=== PATIENT | male | born 1955 | race Two or more races ===

== ENCOUNTER 2017-12-23 16:07 | Inpatient (IN) | payer MEDICAID, OTHER ==
[~2017-12-23] VITALS: Ht 170.2 cm; Wt 89.4 kg
[2017-12-23] MEDS ORDERED: SODIUM CHLORIDE 0.9% 1,000 ML IV ONE (16:24)
[2017-12-23] MEDS ORDERED: PANTOPRAZOLE SODIUM 40 MG/VIAL IV ONE (16:30)
[2017-12-23] MEDS ORDERED: ACETAMINOPHEN 325MG TABLET PO STA (17:07)
[2017-12-23] MEDS ORDERED: VANCOMYCIN 1 G PREMIX 200 ML IV ONE (17:15)
[2017-12-23] MEDS ORDERED: SODIUM CHLORIDE 0.9% 1000ML BAG (SEPSIS BOLUS) IV ONE (17:15)
[2017-12-23] MEDS ORDERED: PIPERACILLIN/TAZ 3.375G PREMIX 50 ML IV ONE (17:15)
[2017-12-23 17:38] LABS: BASOPHILS % 0.7 % (0.0-2.0); HEMATOCRIT. 30.4 % (42.0-52.0); HEMOGLOBIN. 10.4 g/dL (14.0-18.0); LYMPHOCYTES % 8.3 % (20.0-50.0); MEAN CORPUSCULAR HEMOGLOBIN 31.6 pg (28.0-32.0); MEAN CORPUSCULAR VOLUME 92.2 fL (80.0-94.0); MEAN PLATELET VOLUME 8.6 fl (7.4-10.4); MONOCYTES % 5.5 % (2.0-8.0); NEUTROPHILS % 83.5 % (40.0-76.0); PLATELET 102 x1000/uL (130-400); RED BLOOD CELL COUNT 3.29 mill/uL (4.7-6.1); RED CELL DISTRIBUTION WIDTH 19.1 % (11.6-14.6)
[2017-12-23 17:44] LABS: INR 1.4; PROTHROMBIN TIME 14.4 sec (9.1-11.1)
[2017-12-23 17:47] LABS: CHLORIDE 102 mEq/L (98-107)
[2017-12-23 20:00] VITALS: BP 155/103
[2017-12-23] MEDS ORDERED: NITROGLYCERIN 0.4MG TABLET SL SL PRN (21:00)
[2017-12-23] MEDS ORDERED: GUAIFENESIN 200MG/10ML SUGAR FREE UDC PO PRN (21:15)
[2017-12-23] MEDS ORDERED: CLONIDINE 0.1MG TABLET PO PRN (21:15)
[2017-12-23] MEDS ORDERED: ACETAMINOPHEN 325MG TABLET PO PRN (21:15)
[2017-12-23] MEDS ORDERED: IPRATROPIUM/ALBUTEROL 0.5-3(2.5)MG/3ML NEB INH PRN (21:15)
[2017-12-23] MEDS ORDERED: MAGNESIUM/ALUMINUM HYDROXIDE/SIMETHICONE 30ML UDC PO PRN (21:15)
[2017-12-23] MEDS ORDERED: ONDANSETRON HCL 4MG/2ML INJ IV PRN (21:15)
[2017-12-23 21:30] VITALS: BP 141/61
[2017-12-23] MEDS ORDERED: CEFTRIAXONE 1 G PREMIX 50 ML IV SCH (22:30)
[2017-12-23] MEDS ORDERED: PANTOPRAZOLE 80 MG in SODIUM CHLORIDE 0.9% 100 ML IV SCH (22:30)
[2017-12-23] MEDS ORDERED: PHYTONADIONE 10 MG in DEXTROSE 5% WATER 50 ML IV NR (22:30)
[2017-12-23] MEDS ORDERED: OCTREOTIDE 1,000 MCG in SODIUM CHLORIDE 0.9% 100 ML IV SCH ×4 (22:30)
[2017-12-23] MEDS ORDERED: ERGO2000 PO (22:38)
[2017-12-23] MEDS ORDERED: TRAM50TA3 MT (22:38)
[2017-12-23] MEDS ORDERED: CYCL7.5T25 PO (22:38)
[2017-12-23] MEDS ORDERED: FURO40TA5 MT (22:38)
[2017-12-23] MEDS ORDERED: MELO-106 MT (22:38)
[2017-12-23] MEDS ORDERED: FERR325T6 MT (22:38)
[2017-12-23] MEDS ORDERED: THIA100T72 MT (22:38)
[2017-12-23] MEDS ORDERED: BACL-141 PO (22:38)
[2017-12-23] MEDS ORDERED: POTA-9 MT (22:38)
[2017-12-23] MEDS ORDERED: PANT40TA4 MT (22:38)
[2017-12-23] MEDS ORDERED: LACT10SO6 MT (22:38)
[2017-12-23] MEDS: DEXT 5%/0.45% NACL 1000ML 1,000 ML IV SCH (23:35)
[2017-12-24] VITALS: BP 120/63
[2017-12-24] MEDS ORDERED: LEVOFLOXACIN 500MG PREMIX 100 ML IV SCH
[2017-12-24] MEDS: LACTULOSE 20G/30ML UDC PO SCH ×6 (00:02→20:34)
[2017-12-24] MEDS: PANTOPRAZOLE 80 MG in SODIUM CHLORIDE 0.9% 100 ML IV SCH ×3 (00:45→18:26)
[2017-12-24 04:00] VITALS: BP 110/59
[2017-12-24 08:00] VITALS: BP 118/64
[2017-12-24 10:11] LABS: BASOPHILS % 1.2 % (0.0-2.0); EOSINOPHILS % 4.2 % (0.0-5.0); HEMATOCRIT. 25.2 % (42.0-52.0); HEMOGLOBIN. 8.7 g/dL (14.0-18.0); MEAN CORPUSCULAR VOLUME 93.2 fL (80.0-94.0); MEAN PLATELET VOLUME 8.1 fl (7.4-10.4); MONOCYTES % 8.2 % (2.0-8.0); NEUTROPHILS % 65.4 % (40.0-76.0); PLATELET 69 x1000/uL (130-400); RED BLOOD CELL COUNT 2.71 mill/uL (4.7-6.1); RED CELL DISTRIBUTION WIDTH 18.5 % (11.6-14.6)
[2017-12-24 10:32] LABS: CHLORIDE 109 mEq/L (98-107)
[2017-12-24 10:58] LABS: TOTAL IRON BINDING CAPACITY 181 ug/dL (250-450)
[2017-12-24] MEDS: SUCRALFATE 1 G/10 ML UDC PO SCH ×3 (11:13→20:35)
[2017-12-24] MEDS: DEXT 5%/0.45% NACL 1000ML 1,000 ML IV SCH ×2 (11:13→23:17)
[2017-12-24] MEDS: RIFAXIMIN 550 MG TABLET PO SCH ×2 (11:13→20:35)
[2017-12-24 11:20] LABS: FOLIC ACID (FOLATE) SERUM 11.7 ng/mL (>5.38)
[2017-12-24 11:35] VITALS: BP 127/61
[2017-12-24 12:30] LABS: HEPATITIS B SURFACE ANTIGEN NEGATIVE
[2017-12-24 13:00] LABS: HEPATITIS A AB IGM NEGATIVE (NEGATIVE)
[2017-12-24 16:00] VITALS: BP 123/61
[2017-12-24 19:06] LABS: HEMATOCRIT 27.3 % (42.0-52.0); HEMOGLOBIN 9.2 g/dL (14.0-18.0)
[2017-12-24 20:00] VITALS: BP 136/69
[2017-12-25] VITALS: BP 136/71
[2017-12-25] MEDS: LACTULOSE 20G/30ML UDC PO SCH ×7 (00:47→23:51)
[2017-12-25] MEDS: LEVOFLOXACIN 500MG PREMIX 100 ML IV SCH ×2 (00:48→23:52)
[2017-12-25] MEDS: CEFTRIAXONE 1 G PREMIX 50 ML IV SCH ×2 (00:48→23:51)
[2017-12-25 01:16] LABS: HEMATOCRIT 26.2 % (42.0-52.0); HEMOGLOBIN 9.1 g/dL (14.0-18.0)
[2017-12-25] MEDS: DEXT 5%/0.45% NACL 1000ML 1,000 ML IV SCH ×3 (03:30→21:35)
[2017-12-25 04:00] VITALS: BP 116/52
[2017-12-25] MEDS: PANTOPRAZOLE 80 MG in SODIUM CHLORIDE 0.9% 100 ML IV SCH ×3 (04:21→23:52)
[2017-12-25] MEDS: SUCRALFATE 1 G/10 ML UDC PO SCH ×4 (05:45→20:52)
[2017-12-25 06:28] LABS: HEMATOCRIT 25.7 % (42.0-52.0); HEMOGLOBIN 8.9 g/dL (14.0-18.0)
[2017-12-25 08:00] VITALS: BP 138/73
[2017-12-25] MEDS: RIFAXIMIN 550 MG TABLET PO SCH ×2 (08:43→20:52)
[2017-12-25 12:00] VITALS: BP 126/67
[2017-12-25 16:00] VITALS: BP 125/58
[2017-12-25 20:00] VITALS: BP 136/62
[2017-12-26] VITALS: BP 123/65
[2017-12-26 04:00] VITALS: BP 123/56
[2017-12-26] MEDS: LACTULOSE 20G/30ML UDC PO SCH ×2 (04:43→09:10)
[2017-12-26] MEDS: SUCRALFATE 1 G/10 ML UDC PO SCH ×2 (05:08→11:45)
[2017-12-26 08:00] VITALS: BP 140/60
[2017-12-26] MEDS: RIFAXIMIN 550 MG TABLET PO SCH (09:10)
[2017-12-26] MEDS: DEXT 5%/0.45% NACL 1000ML 1,000 ML IV SCH (09:10)
[2017-12-26] MEDS: PANTOPRAZOLE 80 MG in SODIUM CHLORIDE 0.9% 100 ML IV SCH (10:27)
[2017-12-26 12:00] VITALS: BP 127/61
[2017-12-26 15:58] VITALS: BP 132/66
[2017-12-26 16:00] VITALS: BP 132/66
[2017-12-26 16:18] LABS: HEMATOCRIT 26.6 % (42.0-52.0); HEMOGLOBIN 9.2 g/dL (14.0-18.0); MEAN CORPUSCULAR HEMOGLOBIN 32.5 pg (28.0-32.0); MEAN CORPUSCULAR VOLUME 94.4 fL (80.0-94.0); PLATELET 111 x1000/uL (130-400); RED BLOOD CELL COUNT 2.82 mill/uL (4.7-6.1); RED CELL DISTRIBUTION WIDTH 18.2 % (11.6-14.6)
[2017-12-26] MEDS ORDERED: VANCOMYCIN HCL 1000 MG/20 ML ORAL PO SCH (18:00)
[2017-12-26] MEDS ORDERED: PANTOPRAZOLE SODIUM 40 MG/VIAL IV SCH (21:00)
[2017-12-27] MEDS ORDERED: LACTULOSE 20G/30ML UDC PO SCH (09:00)
== END 2017-12-26 19:00 | disposition home or self-care (01) | DRG 279 ==
LOC: ER 16:07 → EDBEDREQTM 20:07 → EDBEDREQ 20:07 → ENRESERV 20:22 → 5WST 21:08
PROVIDERS: ADMIT Internal Medicine; ATTEND Internal Medicine
DX: K72.90 Hepatic failure, unspecified without coma (principal); E43 Unspecified severe protein-calorie malnutrition; I85.11 Secondary esophageal varices with bleeding; K65.2 Spontaneous bacterial peritonitis; K92.0 Hematemesis; A04.72 Enterocolitis due to Clostridium difficile, not specified as recurrent; D68.9 Coagulation defect, unspecified; D69.6 Thrombocytopenia, unspecified; D62 Acute posthemorrhagic anemia; K70.30 Alcoholic cirrhosis of liver without ascites; G40.909 Epilepsy, unspecified, not intractable, without status epilepticus; K80.20 Calculus of gallbladder without cholecystitis without obstruction; Z88.1 Allergy status to other antibiotic agents; Z68.30 Body mass index [BMI] 30.0-30.9, adult; Z79.899 Other long term (current) drug therapy
CPT/HCPCS: 36415; 71045; 76700; 80076; 82140; 82270; 82607; 82728; 82746; 83036; 83540; 83550; 83605; 85014; 85018; 85027; 86705; 86709; 86803; 86850; 86900; 87045; 87340; 87449; 87493; 89055; 93005; 93970; 96365; 96367; 96375; 99291; C9113; G0482; J0696; J1956; J2354; J2543; J3370; J3430; J7030; J7040; J7050; J7060